=== PATIENT | male | born 1980 | race Caucasian/White ===

== ENCOUNTER 2024-10-01 06:02 | Outpatient (CLI) | payer OTHER ==
[2024-10-01] MEDS ORDERED: iohexol 300 MG/1 ML 50ml polymer ONE (06:37)
[2024-10-01] MEDS ORDERED: GADOTERATE MEGLUMINE 7.5 MMOL/15 ML VIAL IV ONE (06:37)
[2024-10-01] MEDS ORDERED: LIDOcaine 1%/PF 5ML 10 MG/ML VIAL ONE (06:37)
[2024-10-01] MEDS ORDERED: LIDOcaine 1% 30ml preserv. free vial ONE (06:37)
== END 2024-10-01 23:59 | disposition home or self-care (01) ==
LOC: RAD 06:02
PROVIDERS: ATTEND General Practice
DX: M25.511 Pain in right shoulder (principal); S43.431A Superior glenoid labrum lesion of right shoulder, initial encounter; M75.111 Incomplete rotator cuff tear or rupture of right shoulder, not specified as traumatic; M75.51 Bursitis of right shoulder; M19.011 Primary osteoarthritis, right shoulder; X58.XXXA Exposure to other specified factors, initial encounter; Y93.89 Activity, other specified; Y92.89 Other specified places as the place of occurrence of the external cause; Y99.8 Other external cause status
CPT/HCPCS: 23350; 73222; 77002; A9575; J2003; J3490; Q9967